=== PATIENT | male | born 1945 | race Caucasian/White ===

== ENCOUNTER 2024-10-11 17:41 | Emergency (ER) | payer MEDICARE, MEDICAID ==
[2024-10-11 18:49] LABS: #Basophils 0.03 10x3/uL (0.0-0.2); #Eosinophils 0.08 10x3/uL (0.0-0.5); #Monocytes 0.87 10x3/uL (0.0-1.1); #Neutrophils 3.78 10x3/uL (1.5-8.4); %Basophils 0.5 % (0.0-2.0); %Eosinophils 1.3 % (0.0-6.0); %Lymphocytes 22.6 % (18.0-47.0); %Monocytes 14.0 % (0.0-10.0); %Neutrophils 60.6 % (40.0-75.0); Hematocrit 37.1 % (38.8-50.0); Hemoglobin 12.1 g/dL (13.5-17.5); Mean Corpuscular Hemoglobin 32.0 pg (27.0-33.0); Mean Corpuscular Volume 98.1 fL (81.2-95.1); Platelet Count 169 10x3/uL (150-450); Red Blood Cell (RBC) Count 3.78 10x6/uL (4.32-5.72); White Blood Cell (WBC) Count 6.23 10x3/uL (3.5-10.5)
[2024-10-11 18:59] LABS: Acetaminophen Less than 10 mcg/mL (Less than 10); Salicylate Less than 8.0 mg/dL (Less than 8.0)
[2024-10-11 19:00] LABS: ALT (SGPT) 12 U/L (Less than 45); AST (SGOT) 18 U/L (11-34); Albumin 3.4 g/dL (3.1-4.5); Alkaline Phosphatase 85 U/L (40-110); Anion Gap 9 mmol/L (10-20); BUN (Urea Nitrogen) 19 mg/dL (8.4-25.7); Bilirubin, Total 0.2 mg/dL (0.3-1.2); Calc. Creatinine Clearance 0 mL/min (70-130); Calcium 8.9 mg/dL (7.8-10.44); Carbon Dioxide 34 mmol/L (23-31); Chloride 103 mmol/L (98-107); Globulin 2.7 g/dL (2.4-3.5); Glucose 86 mg/dL (83-110); Potassium 4.1 mmol/L (3.5-5.1); Sodium 142 mmol/L (136-145)
[2024-10-11 19:16] LABS: Glucose, Urine (Dipstick) Normal (Negative); Leukocyte Negative (Negative); Protein, Urine (Dipstick) 30 mg/dl (Neg-Trace); Specific Gravity, Urine 1.015 (1.005-1.030)
[2024-10-11 19:25] LABS: Cocaine Metabolite Screen Negative (Negative); THC/Cannabinoid Screen Negative (Negative); Tricyclic Screen Negative (Negative)
[2024-10-11 19:29] LABS: Bacteria/HPF Rare-Few HPF (None Seen); CAUTI Indications for Culture Alt mental st,lethar; RBC/HPF Greater than 50 HPF (0-3); WBC/HPF 0-3 HPF (0-3)
[2024-10-11 19:30] LABS: Urine Culture Reflex No No
== END 2024-10-11 20:09 | disposition home or self-care (01) ==
LOC: CSHERS 17:41
DX: I10 Essential (primary) hypertension (principal); F03.911 Unspecified dementia, unspecified severity, with agitation; Z86.73 Personal history of transient ischemic attack (TIA), and cerebral infarction without residual deficits; R29.700 NIHSS score 0; Z87.891 Personal history of nicotine dependence
CPT/HCPCS: 36415; 70450; 80053; 80306; 80307; 81001; 85025